=== PATIENT | male | born 1940 | race Caucasian/White ===

== ENCOUNTER 2016-10-13 16:42 | Inpatient (IN) | payer MEDICARE, BC ==
--- NOTE | ~2016-10-13 | DS ---
Discharge Summary [facility] [address] [place]. [address] NAME: DAVID ENAMORADO : 42 STATUS : DIS IN PAT#: [id number] AGE: 76 ADM/REG DATE : 10/13/16 MR#: [id number] REPORT SERV DATE: 10/24/16 DICTATED BY: SUMMER GRAYSON DATE: 10/24/16 REPORT STATUS : Draft TRANSCRIBED BY: JARRED DATE: 10/24/16 ADMISSION DATE: 10/13/2016 DISCHARGE DATE: 10/16/2016 DISCHARGE DIAGNOSES: 1. Benign prostatic hypertrophy. 2. Gross hematuria. DISCHARGE PROCEDURES: 1. Cystoscopy with clot evacuation and fulguration. 2. Robot-assisted laparoscopic simple prostatectomy. HOSPITAL COURSE: Mr. Enamorado is a very pleasant man, who presented to the [facility] ER with gross hematuria and urinary retention. A Arana catheter was placed. He was taken the next day for cystoscopy and fulguration. During this procedure, a large amount of clot was found in his bladder. The prostate was found to be very enlarged. A CT scan was performed the same day to evaluate for the causes of his hematuria. He was found to have a greater than 200 g prostate. At this time, the patient was transferred to the [facility]. On hospital day #2, the patient underwent a robot-assisted laparoscopic simple prostatectomy. He tolerated this procedure well, and there were no major complications. For full operative details, please see my operative note. Postoperatively, transferred to the recovery room and then to the floor in stable condition. A Arana catheter was maintained on CBI for one day. This was weaned. His urine was clear. On the day of discharge, the patient was deemed medically fit for home and was discharged to home after his drain was removed. Prior to being discharged, he had return of bowel function and his pain was well controlled. DISCHARGE MEDICATIONS: Please see discharge worksheet. FOLLOWUP: Please follow up with me in one week for Arana catheter removal. DISCHARGE INSTRUCTIONS: Please see my preprinted discharge instructions. NGUYEN/JARRED Summer Grayson MD / [id number] CC: MD Humberto Lozano,
--- NOTE | ~2016-10-13 | OP ---
Record Of Operation [facility] [address] [place]. [address] NAME: DAVID ENAMORADO : 42 STATUS : ADM IN [facility]#: [id number] AGE: 76 ADM/REG DATE : 10/13/16 MR#: [id number] REPORT SERV DATE: 10/15/16 DICTATED BY: SUMMER GRAYSON DATE: 10/15/16 REPORT STATUS : Draft TRANSCRIBED BY: MODL DATE: 10/15/16 DATE OF PROCEDURE: 10/14/2016 TITLE OF OPERATION: Robot-assisted laparoscopic simple prostatectomy. PREOPERATIVE DIAGNOSES: 1. Benign prostatic hypertrophy with obstruction. 2. Gross hematuria. POSTOPERATIVE DIAGNOSIS: 1. Benign prostatic hypertrophy with obstruction. 2. Gross hematuria. INDICATIONS: Mr. Enamorado is a 76-year-old male, who presented to the [facility] ER with gross hematuria over the weekend. He was taken to the operating room for cystoscopy and clot evacuation yesterday. He is found to have a massive prostate with bleeding. A CT scan was performed. This confirmed a greater than 200 g prostate. We are taking him today for robotic simple prostatectomy to relieve his obstruction as well as treat his hematuria. Risks, benefits, and expected outcomes were extensively discussed with him and his . NARRATIVE: The patient was brought to the operating room, identified by his wristband. General anesthesia was induced and Ancef was given for preoperative antibiotics. He was placed in dorsal lithotomy position, prepped and draped in sterile fashion. His abdomen was insufflated to pressure of 15 mmHg using a Veress needle. A 12 mm port was placed in a supraumbilical position under direct vision. The abdomen was inspected. There were some mild adhesions over the right side of the body which were taken down with Endoshears. There was no significant lysis of adhesions necessary. Next, three 8 mm ports were placed in standard position with two on the left side of the body and one on the right side of the body. A 12 mm port was placed in the right lower quadrant under direct vision for assistant to the ceo port. A 5 mm port was placed in the right upper quadrant for a second assistant to the ceo port. The patient was then placed in the Trendelenburg position. He had been previously secured to the bed with pads and tape. The SI robot was then docked. Once the instruments were in position, the bladder was dropped off the anterior abdominal wall using electrocautery. This exposed the pubic bone and the prostate. There were some adhesions from his prior back surgery on the left side. Therefore, the bladder was not aggressively taken down off the left side of the body in order to not injure various structures including the iliac vessels. Once the prostate was identified, the prostate was defatted using bipolar cautery and scissors. The superficial dorsal vein was taken with bipolar cautery and scissors. A horizontal cystotomy was then made in the bladder. A large intravesical median lobe was identified. A 0 Vicryl suture was placed through the medium lobe and clipped as a retracting suture. The bladder mucosa was then scored above the level of the trigone with care taken not to injure the ureters on the median lobe. This incision was carried deeply through detrusor fibers down to the level of the adenoma. The adenoma was then followed to the junction of the transitional and peripheral zones. At this point, dissection was carried distally to the level of the apex. Next, the adenoma was followed around the left and right side sequentially. The bladder mucosa was divided when necessary. The adenoma Record Of [facility] [address] [place]. [address] NAME: DAVID ENAMORADO : 42 STATUS : ADM IN [facility]#: [id number] AGE: 76 ADM/REG DATE : 10/13/16 MR#: [id number] REPORT SERV DATE: 10/15/16 DICTATED BY: SUMMER GRAYSON DATE: 10/15/16 REPORT STATUS : Draft TRANSCRIBED BY: MODEarl DATE: 10/15/16 was dissected off the prostatic capsule laterally and anteriorly from the level of the base of the prostate down to the apex. Once the adenoma had been freed from all adjacent structures, the urethra was precisely identified and sharply identified with scissors. The adenoma was then removed from the prostatic fossa and placed into an EndoCatch bag. There was a prostatic stone that was also removed as well. Pinpoint bleeders were controlled with bipolar cautery. The bladder mucosa and pedicle to the prostate were oversewn with a running 3-0 V-Loc suture. A second V-Loc suture was used to oversew the dorsal vein perforating vessels in a U shaped fashion on the renal capsule. A 24-Anguillan three-way Arana catheter was then placed into the prostatic fossa into the bladder with robotic assistance. The bladder was closed in two layers with the first layer being a mucosal layer using a 3-0 V-Loc suture. Second layer was a seromuscular layer with a running 2-0 V-Loc suture. The bladder was irrigated. The connection was water tight. The balloon was inflated with 40 mL of sterile water. Traction was performed and CBI was initiated. The robot was then undocked. The assistant to the ceo port was closed with a 0 Vicryl suture using Alexis-Amarilis device. A #10 round RAINER drain was placed through the left most lateral robotic port. All ports were then removed under direct vision. The supraumbilical incision was enlarged at the skin and fascia levels, and the bag and prostate were removed and sent to Pathology for analysis. The fascia was closed with a 0 Monocryl suture in a [id number] fashion. The wounds were irrigated clear. A TAP block was placed preoperatively. The subcutaneous tissues were closed with 3-0 Vicryl suture. Skin was closed with 4-0 Monocryl suture in subcuticular fashion. Dermabond dressing was placed. The drain was sutured in place with a 2-0 Prolene suture. The patient was then awoken from anesthesia and transferred to the recovery room. His catheter was on traction. CBI was running. His urine was clear. NGUYEN/JARRED Summer Grayson MD / [id number] CC: MD Humberto Lozano DO
[~2016-10-13 16:42] MED LIST: HYT5 PO
[2016-10-14 05:59] LABS: BASOPHILS 0.2 %; BASOPHILS ABSOLUTE 0.02 10/3/uL (0.0-0.16); EOSINOPHILS 2.5 %; EOSINOPHILS ABSOLUTE 0.21 10/3/uL (0.0-0.53); HEMATOCRIT 38.2 % (40.0-51.0); HEMOGLOBIN 12.5 g/dL (13.6-17.8); IMMATURE GRANULOCYTES 0.2 %; IMMATURE GRANULOCYTES ABSOLUTE 0.02 10/3/uL (0.0-0.11); LYMPHOCYTES 17.8 %; LYMPHOCYTES ABSOLUTE 1.48 10/3/uL (0.67-4.30); MEAN CORPUS HGB CONC 32.7 g/dL (32.0-36.0); MEAN CORPUSCULAR HEMOGLOB 28.5 pg (26.0-34.0); MEAN CORPUSCULAR VOLUME 87.2 fL (80-100); MEAN PLATELET VOLUME 10.5 fL (9.2-13.0); MONOCYTES ABSOLUTE 0.75 10/3/uL (0.21-1.20); NEUTROPHILS 70.3 %; NEUTROPHILS ABSOLUTE 5.83 10/3/uL (2.02-8.40); PLATELET COUNT 182 10/3/uL (150-400); RBC DISTRIBUTION WIDTH 14.7 % (12.0-16.0); RED CELL COUNT 4.38 10/6/uL (4.7-6.1); WHITE BLOOD CELLS 8.3 10/3/uL (4.5-10.5)
[2016-10-14 06:10] LABS: MANUAL DIFF NO %
[2016-10-14 06:12] LABS: BUN (BLOOD UREA NITROGEN) 12 MG/DL (6-23); CALCIUM, SERUM 8.3 MG/DL (8.5-10.4); CHLORIDE, SERUM 104 MMOL/L (96-112); CO2 (CARBON DIOXIDE) 26 MMOL/L (24-34); CREATININE 0.75 MG/DL (0.70-1.30); GFR AFRICAN AMERICAN 104 ML/MIN (>=60); GFR NON AFRICAN AMERICAN 90 ML/MIN (>=60); GLUCOSE, SERUM 89 MG/DL (60-99); POTASSIUM, SERUM 4.1 MMOL/L (3.5-5.3); SODIUM, SERUM 140 MMOL/L (135-148)
[2016-10-14 06:39] LABS: PARTIAL THROMBO TIME 27.5 SEC (22.5-37.2)
[2016-10-14 06:40] LABS: PROTIME (NOT ORD) 13.5 SEC (12.0-14.5)
[2016-10-14 21:35] LABS: BASOPHILS 0.2 %; BASOPHILS ABSOLUTE 0.02 10/3/uL (0.0-0.16); EOSINOPHILS 0.4 %; EOSINOPHILS ABSOLUTE 0.04 10/3/uL (0.0-0.53); HEMATOCRIT 38.6 % (40.0-51.0); HEMOGLOBIN 12.8 g/dL (13.6-17.8); IMMATURE GRANULOCYTES 0.4 %; IMMATURE GRANULOCYTES ABSOLUTE 0.04 10/3/uL (0.0-0.11); LYMPHOCYTES 6.2 %; LYMPHOCYTES ABSOLUTE 0.71 10/3/uL (0.67-4.30); MEAN CORPUS HGB CONC 33.2 g/dL (32.0-36.0); MEAN CORPUSCULAR HEMOGLOB 28.8 pg (26.0-34.0); MEAN CORPUSCULAR VOLUME 86.7 fL (80-100); MEAN PLATELET VOLUME 10.1 fL (9.2-13.0); MONOCYTES 1.1 %; MONOCYTES ABSOLUTE 0.12 10/3/uL (0.21-1.20); NEUTROPHILS 91.7 %; NEUTROPHILS ABSOLUTE 10.48 10/3/uL (2.02-8.40); PLATELET COUNT 188 10/3/uL (150-400); RBC DISTRIBUTION WIDTH 14.4 % (12.0-16.0); RED CELL COUNT 4.45 10/6/uL (4.7-6.1); WHITE BLOOD CELLS 11.4 10/3/uL (4.5-10.5)
[2016-10-14 21:37] LABS: MANUAL DIFF NO %
[2016-10-14 21:44] LABS: CALCIUM, SERUM 8.2 MG/DL (8.5-10.4); CHLORIDE, SERUM 107 MMOL/L (96-112); CO2 (CARBON DIOXIDE) 23 MMOL/L (24-34); CREATININE 0.79 MG/DL (0.70-1.30); GFR AFRICAN AMERICAN 102 ML/MIN (>=60); GFR NON AFRICAN AMERICAN 88 ML/MIN (>=60); POTASSIUM, SERUM 4.3 MMOL/L (3.5-5.3); SODIUM, SERUM 141 MMOL/L (135-148)
[2016-10-14 21:45] LABS: BUN (BLOOD UREA NITROGEN) 17 MG/DL (6-23); GLUCOSE, SERUM 126 MG/DL (60-99)
[2016-10-15 05:55] LABS: BASOPHILS 0 %; EOSINOPHILS 0 %; HEMATOCRIT 36.5 % (40.0-51.0); HEMOGLOBIN 12.1 g/dL (13.6-17.8); IMMATURE GRANULOCYTES 0.4 %; IMMATURE GRANULOCYTES ABSOLUTE 0.04 10/3/uL (0.0-0.11); LYMPHOCYTES 5.2 %; LYMPHOCYTES ABSOLUTE 0.57 10/3/uL (0.67-4.30); MEAN CORPUS HGB CONC 33.2 g/dL (32.0-36.0); MEAN CORPUSCULAR HEMOGLOB 28.6 pg (26.0-34.0); MEAN CORPUSCULAR VOLUME 86.3 fL (80-100); MEAN PLATELET VOLUME 9.9 fL (9.2-13.0); MONOCYTES 5.6 %; MONOCYTES ABSOLUTE 0.62 10/3/uL (0.21-1.20); NEUTROPHILS 88.8 %; PLATELET COUNT 194 10/3/uL (150-400); RBC DISTRIBUTION WIDTH 14.1 % (12.0-16.0); RED CELL COUNT 4.23 10/6/uL (4.7-6.1)
[2016-10-15 05:56] LABS: MANUAL DIFF NO %
[2016-10-15 06:09] LABS: BUN (BLOOD UREA NITROGEN) 14 MG/DL (6-23); CALCIUM, SERUM 7.9 MG/DL (8.5-10.4); CHLORIDE, SERUM 106 MMOL/L (96-112); CO2 (CARBON DIOXIDE) 24 MMOL/L (24-34); CREATININE 0.92 MG/DL (0.70-1.30); GFR AFRICAN AMERICAN 94 ML/MIN (>=60); GFR NON AFRICAN AMERICAN 81 ML/MIN (>=60); POTASSIUM, SERUM 4.4 MMOL/L (3.5-5.3); SODIUM, SERUM 139 MMOL/L (135-148)
[2016-10-15 06:15] LABS: GLUCOSE, SERUM 186 MG/DL (60-99)
[2016-10-16 05:16] LABS: BASOPHILS 0.1 %; BASOPHILS ABSOLUTE 0.01 10/3/uL (0.0-0.16); EOSINOPHILS 0.8 %; EOSINOPHILS ABSOLUTE 0.07 10/3/uL (0.0-0.53); HEMOGLOBIN 10.7 g/dL (13.6-17.8); IMMATURE GRANULOCYTES 0.2 %; IMMATURE GRANULOCYTES ABSOLUTE 0.02 10/3/uL (0.0-0.11); LYMPHOCYTES 13.2 %; LYMPHOCYTES ABSOLUTE 1.23 10/3/uL (0.67-4.30); MEAN CORPUS HGB CONC 33.1 g/dL (32.0-36.0); MEAN CORPUSCULAR HEMOGLOB 28.6 pg (26.0-34.0); MEAN CORPUSCULAR VOLUME 86.4 fL (80-100); MEAN PLATELET VOLUME 10.4 fL (9.2-13.0); MONOCYTES 9.5 %; MONOCYTES ABSOLUTE 0.89 10/3/uL (0.21-1.20); NEUTROPHILS 76.2 %; NEUTROPHILS ABSOLUTE 7.11 10/3/uL (2.02-8.40); PLATELET COUNT 190 10/3/uL (150-400); RBC DISTRIBUTION WIDTH 14.7 % (12.0-16.0); RED CELL COUNT 3.74 10/6/uL (4.7-6.1); WHITE BLOOD CELLS 9.3 10/3/uL (4.5-10.5)
[2016-10-16 05:25] LABS: CALCIUM, SERUM 8.3 MG/DL (8.5-10.4); CHLORIDE, SERUM 107 MMOL/L (96-112); CO2 (CARBON DIOXIDE) 28 MMOL/L (24-34); CREATININE 0.75 MG/DL (0.70-1.30); GFR AFRICAN AMERICAN 104 ML/MIN (>=60); GFR NON AFRICAN AMERICAN 90 ML/MIN (>=60); POTASSIUM, SERUM 4.1 MMOL/L (3.5-5.3); SODIUM, SERUM 143 MMOL/L (135-148)
[2016-10-16 05:27] LABS: BUN (BLOOD UREA NITROGEN) 10 MG/DL (6-23); GLUCOSE, SERUM 117 MG/DL (60-99)
[2016-10-16 05:32] LABS: HEMATOCRIT 32.3 % (40.0-51.0); MANUAL DIFF NO %
[2016-10-16] MEDS ORDERED: PCET PO (08:11)
[2016-10-16] MEDS ORDERED: CIP5 PO (08:12)
[2016-10-16] MEDS ORDERED: DSS PO (08:12)
== END 2016-10-16 14:54 | disposition home or self-care (01) | DRG 707 ==
LOC: 5SO 16:42
PROVIDERS: Urology
DX: N40.1 Benign prostatic hyperplasia with lower urinary tract symptoms (principal); N13.8 Other obstructive and reflux uropathy; R31.0 Gross hematuria; Z88.8 Allergy status to other drugs, medicaments and biological substances
CPT/HCPCS: 36415; 74178; 80048; 81001; 85014; 85018; 85025; 85610; 85730; 86850; 86900; 86901; 87086; 88112; 88307; 88311; 93005; 99285; A9270-GY; J0690; J2250; J2405; J2710; J2795; J3010; Q9967